=== PATIENT | female | born 1965 | race Caucasian/White ===

== ENCOUNTER → 2018-11-20 13:41 | Outpatient (CLI) | payer OTHER, SELFPAY ==
--- NOTE | 2018-11-19 11:30 | CER_PTH ---
PATIENT: KASEY WHITFIELD LOC: [facility] U#:[id number] AGE/SX: 60/F ROOM: RE11/20/[address]: Dr. Veto Schmidt MD : [id number] BED: DIS: SPEC #: [id number] RECD: 11/20/18 10:49 STATUS: NELIDA FLAVIA #: [id number] MARIPOSA: 11/19/18 11:[address]: Veto Schmidt DEPT: SURGICAL PATHOLOGY RECD BY: Amarjit Reyna Tissues: Uterine cervix, NOS Procedures: Surgery Specimen Level IV HEADER OPERATION: Cervical polyp removal PRE-OP DIAGNOSIS: N84.1 TISSUE SUBMITTED: Cervical polyp MICROSCOPIC DIAGNOSIS Cervical polyp: Ulcerated endocervical polyp, chronically inflamed. CE:maggy 11/21/18 MICROSCOPIC DESCRIPTION Slides are reviewed. GROSS DESCRIPTION Received in fixative is one container labeled with the patient's name and designated cervical polyp. The specimen consists of multiple fragments of petty mucoid tissue that in aggregate measure 0.5 x 0.5 x 0.1 cm. The specimen is totally submitted in one cassette. / SJ:rg 11/20/18 TC:3 CPT: 58261
[2018-11-26 10:46] LABS: HPV Reflexed? NOT INDICATED
== END ==
PROVIDERS: Referring Provider Obstetrics & Gynecology; Visit Provider Obstetrics & Gynecology
DX: Z12.4 Encounter for screening for malignant neoplasm of cervix (principal); N84.1 Polyp of cervix uteri
CPT/HCPCS: 87624; 88175; 88305; G0145